=== PATIENT | male | born 1960 | race Caucasian/White ===

== ENCOUNTER 2019-08-12 21:04 | Observation (INO) ==
[2019-08-13] MEDS ORDERED: Naloxone 0.4 MG/ML INJ IVP PRN ×2 (04:16→16:41)
[2019-08-13] MEDS ORDERED: Dextrose Gel 15 GM/37.5 ML TUBE PO PRN ×4 (06:41→16:41)
[2019-08-13] MEDS ORDERED: *HR* Dextrose 50 % in Water (Syg) 50 ML SYRINGE IVP PRN ×2 (06:41→16:41)
[2019-08-13] MEDS ORDERED: D5% in Water 1,000 ML IVC PRN ×2 (06:41→16:41)
[2019-08-13 08:07] LABS: Hematocrit 36.4 % (37.5-50.1); Hemoglobin 12.6 g/dL (12.9-16.9); Mean Corpuscular HGB Conc 34.6 g/dL (31.6-35.5); Mean Corpuscular Hemoglobin 30.6 pg (28.0-33.3); Mean Corpuscular Volume 88.3 fL (83.0-100.0); Mean Platelet Volume 10.4 fL (9.4-12.4); Platelet Count 230 K/mcL (140-400); Red Blood Count 4.12 M/mcL (4.19-5.50); Red Cell Distribution Width 11.7 % (11.5-14.5)
[2019-08-13 08:26] LABS: BUN/Creatinine Ratio 13 (6-26); Blood Urea Nitrogen 12 mg/dL (6-20); Calcium 8.8 mg/dL (8.6-10.3); Carbon Dioxide 27 mEq/L (23-29); Chloride 100 mEq/L (98-107); Glucose 282 mg/dL (70-105); Osmolality,Calculated 294 (280-300); Potassium 3.1 mEq/L (3.5-5.1); Sodium 137 mEq/L (136-145); eGFR For African Americans > 60 (> 60); eGFR For Non-African Americans > 60 (> 60)
[2019-08-13] MEDS ORDERED: Metoprolol 100 MG TABLET PO SCH ×2 (09:00→21:00)
[2019-08-13] MEDS ORDERED: levoFLOXacin 750 MG/150 ML 750 MG/150 ML BAG IVPB SCH (09:00)
[2019-08-13 09:31] LABS: INR 1.2; Prothrombin Time 13.6 Seconds (9.4-12.1)
[2019-08-13] MEDS ORDERED: Ondansetron 4 MG/2 ML VIAL IVP ONE (09:34)
[2019-08-13] MEDS ORDERED: *HR* Promethazine 25 MG/ML VIAL IVP PRN (09:34)
[2019-08-13] MEDS ORDERED: *HR* OxyCODONE Immed Rel 5 MG TABLET PO PRN (09:34)
[2019-08-13] MEDS ORDERED: *HR* HYDROmorphone (PF) 1 MG/ML SYRINGE IVP PRN (09:34)
[2019-08-13 09:43] LABS: Albumin 3.5 g/dL (3.5-5.7); Albumin/Globulin Ratio 1.1 (1.1-2.2); Bilirubin,Direct 0.1 mg/dL (0.0-0.2); Bilirubin,Indirect 0.5 mg/dL (0.0-1.0); Bilirubin,Total 0.6 mg/dL (0.3-1.0); Globulin 3.3 g/dL (2.4-3.5); Magnesium 1.3 mg/dL (1.6-2.6); Phosphorous 3.9 mg/dL (2.7-4.5); Total Protein 6.8 g/dL (6.4-8.9)
[2019-08-13] MEDS ORDERED: *HR* FentaNYL (PF) 100 MCG/2 ML VIAL ONE (10:48)
[2019-08-13] MEDS ORDERED: Lidocaine -MPF 2% 2 ML VIAL ONE (10:48)
[2019-08-13] MEDS ORDERED: Dexamethasone 4 MG/ML VIAL ONE (10:48)
[2019-08-13] MEDS ORDERED: Ondansetron 4 MG/2 ML VIAL ONE (10:48)
[2019-08-13] MEDS ORDERED: *HR* Propofol 200 MG/20 ML VIAL IVP ONE (10:49)
[2019-08-13] MEDS ORDERED: Insulin LISPRO 300 UNITS/3 ML VIAL SQ SCH ×2 (12:00→18:00)
[2019-08-13] MEDS: 0.9 % Sodium Chloride 1,000 ML IVC SCH ×2 (12:26→17:20)
[2019-08-13] MEDS ORDERED: Isovue-300 50ML VIAL ONE (14:45)
[2019-08-13] MEDS ORDERED: EPHEDrine 50 MG/ML VIAL ONE (15:12)
[2019-08-13] MEDS ORDERED: 0.9 % Sodium Chloride 1,000 ML IVC SCH (16:41)
[2019-08-13 16:49] VITALS: BP 148/93
[2019-08-14] MEDS ORDERED: levoFLOXacin 750 MG/150 ML 750 MG/150 ML BAG IVPB SCH (09:00)
[2019-08-16 22:40] LABS: Calculi Mass 69 mg
== END 2019-08-13 19:33 | disposition home or self-care (01) ==
LOC: 3ANU
PROVIDERS: ADMIT Family Medicine; ATTEND Family Medicine

== ENCOUNTER 2021-03-19 21:03 | Inpatient (IN) ==
[2021-03-20] MEDS ORDERED: *HR* Labetalol 20 MG/4 ML SYRINGE IVP ONE (00:53)
[2021-03-20] MEDS ORDERED: *HR* HYDROcodone/Acet 10/325 mg TABLET PO ONE (00:55)
[2021-03-20] MEDS ORDERED: Naloxone 0.4 MG/ML INJ IVP PRN (01:09)
[2021-03-20] MEDS ORDERED: Ondansetron ODT 4 MG TAB.RAPDIS SL PRN (01:09)
[2021-03-20] MEDS ORDERED: Dextrose Gel 15 GM/37.5 ML TUBE PO PRN ×2 (02:57)
[2021-03-20] MEDS ORDERED: D5% in Water 1,000 ML IVC PRN (02:57)
[2021-03-20] MEDS ORDERED: *HR* Dextrose 50 % in Water (Vial) 50 ML VIAL IVP PRN (02:57)
[2021-03-20] MEDS: Insulin LISPRO 300 UNITS/3 ML VIAL SUBQ SCH ×3 (05:48→17:37)
[2021-03-20 09:39] LABS: Basophils % 0.6 %; Eosinophils # 0.1 K/mcL (0.0-0.6); Eosinophils % 1.3 %; Hematocrit 37.4 % (37.5-50.1); Hemoglobin 12.5 g/dL (12.9-16.9); Immature Granulocytes % 0.4 % (0-4); Lymphocytes # 0.9 K/mcL (0.6-4.6); Lymphocytes % 12.8 %; Mean Corpuscular HGB Conc 33.4 g/dL (31.6-35.5); Mean Corpuscular Hemoglobin 30.6 pg (28.0-33.3); Mean Corpuscular Volume 91.4 fL (83.0-100.0); Mean Platelet Volume 10.8 fL (9.4-12.4); Monocytes % 13.5 %; Nucleated Red Blood Cells 0.3 /100 WBC (0); Platelet Count 155 K/mcL (140-400); Red Blood Count 4.09 M/mcL (4.19-5.50); Red Cell Distribution Width 12.5 % (11.5-14.5); Segmented Neutrophils % 71.4 %; White Blood Count 7.1 K/mcL (4.3-11.1)
[2021-03-20 09:40] LABS: Basophils % 0.4 %; Eosinophils # 0.1 K/mcL (0.0-0.6); Eosinophils % 1.3 %; Hematocrit 37.2 % (37.5-50.1); Hemoglobin 12.6 g/dL (12.9-16.9); Immature Granulocytes % 0.4 % (0-4); Lymphocytes # 0.9 K/mcL (0.6-4.6); Lymphocytes % 12.4 %; Mean Corpuscular HGB Conc 33.9 g/dL (31.6-35.5); Mean Corpuscular Hemoglobin 30.7 pg (28.0-33.3); Mean Corpuscular Volume 90.7 fL (83.0-100.0); Mean Platelet Volume 11.1 fL (9.4-12.4); Monocytes % 13.2 %; Neutrophils # 5.2 K/mcL (1.6-8.9); Platelet Count 173 K/mcL (140-400); Red Cell Distribution Width 12.4 % (11.5-14.5); Segmented Neutrophils % 72.3 %; White Blood Count 7.2 K/mcL (4.3-11.1)
[2021-03-20] MEDS: Aspirin 325 MG TABLET PO SCH (09:51)
[2021-03-20] MEDS: Metoprolol 100 MG TABLET PO SCH ×2 (09:52→19:59)
[2021-03-20 09:59] LABS: Calcium 8.3 mg/dL (8.6-10.3); Magnesium 1.8 mg/dL (1.6-2.6); Phosphorous 8.5 mg/dL (2.7-4.5); Potassium 3.8 mEq/L (3.5-5.1)
[2021-03-20 10:00] LABS: Albumin 3.6 g/dL (3.5-5.7); Albumin/Globulin Ratio 1.3 (1.1-2.2); Bilirubin,Total 0.6 mg/dL (0.3-1.0); Calcium 8.4 mg/dL (8.6-10.3); Globulin 2.7 g/dL (2.4-3.5); Potassium 3.8 mEq/L (3.5-5.1); Total Protein 6.3 g/dL (6.4-8.9)
[2021-03-20] MEDS ORDERED: Ondansetron 4 MG/2 ML VIAL IVP PRN (11:04)
[2021-03-20] MEDS ORDERED: *HR* HYDROmorphone PF 0.5 MG/0.5 ML SYRINGE IVP PRN (11:04)
[2021-03-20] MEDS ORDERED: Lidocaine -MPF 2% 2 ML VIAL ONE (11:14)
[2021-03-20] MEDS ORDERED: *HR* FentaNYL (PF) 100 MCG/2 ML VIAL ONE (11:15)
[2021-03-20] MEDS ORDERED: *HR* Propofol 200 MG/20 ML VIAL IVP ONE (11:15)
[2021-03-20] MEDS ORDERED: *HR* Midazolam HCl 2 MG/2 ML VIAL ONE (11:15)
[2021-03-20] MEDS ORDERED: Lidocaine Jelly 6ml 1 APPL/6 ML JEL.PF.APP ONE ×2 (11:26→11:44)
[2021-03-20] MEDS ORDERED: Isovue-300 50ML VIAL ONE ×2 (11:26→11:44)
[2021-03-20] MEDS ORDERED: Gentamicin 80 MG/2 ML VIAL ONE (11:56)
[2021-03-20] MEDS ORDERED: *HR* Succinylcholine 200 MG/10 ML VIAL IVP ONE (11:59)
[2021-03-20] MEDS ORDERED: Gentamicin 160 MG in 0.9 % Sodium Chloride 100 ML IVPB ONE (12:15)
[2021-03-20] MEDS ORDERED: Ringers Solution, Lactated 1,000 ML ONE (13:12)
[2021-03-20] MEDS: 0.9 % Sodium Chloride 1,000 ML IVC SCH (15:49)
[2021-03-20] MEDS: *HR* Heparin 5,000 UNIT/ML VIAL SQ SCH (16:53)
[2021-03-20] MEDS ORDERED: Metoprolol 100 MG TABLET PO SCH (20:00)
[2021-03-20] MEDS ORDERED: NON-FORMULARY MEDICATION 1 EACH EACH (Atorvastatin Calcium [Lipitor] 80 MG Tablet) PO SCH (21:00)
[2021-03-21] MEDS: 0.9 % Sodium Chloride 1,000 ML IVC SCH ×3 (00:53→20:26)
[2021-03-21] MEDS: Insulin LISPRO 300 UNITS/3 ML VIAL SUBQ SCH ×4 (00:57→17:38)
[2021-03-21 04:09] LABS: Basophils % 0.2 %; Eosinophils # 0.1 K/mcL (0.0-0.6); Eosinophils % 0.8 %; Hematocrit 32.3 % (37.5-50.1); Hemoglobin 11.4 g/dL (12.9-16.9); Immature Granulocytes % 0.5 % (0-4); Lymphocytes # 0.8 K/mcL (0.6-4.6); Lymphocytes % 13.1 %; Mean Corpuscular HGB Conc 35.3 g/dL (31.6-35.5); Mean Corpuscular Hemoglobin 31.3 pg (28.0-33.3); Mean Corpuscular Volume 88.7 fL (83.0-100.0); Mean Platelet Volume 11.3 fL (9.4-12.4); Monocytes # 0.6 K/mcL (0.0-1.3); Monocytes % 9.5 %; Neutrophils # 4.9 K/mcL (1.6-8.9); Platelet Count 173 K/mcL (140-400); Red Blood Count 3.64 M/mcL (4.19-5.50); Red Cell Distribution Width 11.9 % (11.5-14.5); Segmented Neutrophils % 75.9 %; White Blood Count 6.4 K/mcL (4.3-11.1)
[2021-03-21 04:22] LABS: Calcium 7.9 mg/dL (8.6-10.3); Magnesium 1.3 mg/dL (1.6-2.6); Phosphorous 4.8 mg/dL (2.7-4.5); Potassium 3.6 mEq/L (3.5-5.1)
[2021-03-21] MEDS: *HR* Heparin 5,000 UNIT/ML VIAL SQ SCH (05:31)
[2021-03-21] MEDS: Aspirin 325 MG TABLET PO SCH (08:09)
[2021-03-21] MEDS: Metoprolol 100 MG TABLET PO SCH ×2 (08:09→20:27)
[2021-03-22] MEDS: Insulin LISPRO 300 UNITS/3 ML VIAL SUBQ SCH ×3 (02:05→12:17)
[2021-03-22] MEDS: 0.9 % Sodium Chloride 1,000 ML IVC SCH (05:15)
[2021-03-22 06:29] LABS: Calcium 8.4 mg/dL (8.6-10.3); Magnesium 1.2 mg/dL (1.6-2.6); Phosphorous 2.6 mg/dL (2.7-4.5)
[2021-03-22] MEDS ORDERED: Potassium Chloride 40 MEQ, Lidocaine 1% 2 ML in 0.9 % Sodium Chloride 500 ML IVPB ONE (07:47)
[2021-03-22] MEDS: Aspirin 325 MG TABLET PO SCH (08:42)
[2021-03-22] MEDS: Metoprolol 100 MG TABLET PO SCH (08:43)
[2021-03-22 11:42] VITALS: BP 152/87
== END 2021-03-22 16:05 | disposition home or self-care (01) | DRG 661 ==
LOC: 3BNU → SUATTDRO 23:03
PROVIDERS: ADMIT Student in an Organized Health Care Education/Training Program; ATTEND Family Medicine

== ENCOUNTER 2021-09-21 18:33 | Observation (INO) ==
[2021-09-21] MEDS ORDERED: Ketorolac 30 MG/ML VIAL IVP ONE (23:27)
[2021-09-21] MEDS ORDERED: 0.9 % Sodium Chloride 1,000 ML IV ONE (23:27)
[2021-09-22 00:28] LABS: Basophils # 0.1 K/mcL (0.0-0.2); Basophils % 0.7 %; Eosinophils # 0.3 K/mcL (0.0-0.6); Eosinophils % 3.4 %; Hematocrit 44.1 % (37.5-50.1); Hemoglobin 14.6 g/dL (12.9-16.9); Immature Granulocytes % 0.7 % (0-4); Lymphocytes # 1.7 K/mcL (0.6-4.6); Lymphocytes % 19.9 %; Mean Corpuscular HGB Conc 33.1 g/dL (31.6-35.5); Mean Corpuscular Hemoglobin 29.4 pg (28.0-33.3); Mean Corpuscular Volume 88.9 fL (83.0-100.0); Mean Platelet Volume 11.3 fL (9.4-12.4); Monocytes # 0.9 K/mcL (0.0-1.3); Monocytes % 10.5 %; Neutrophils # 5.6 K/mcL (1.6-8.9); Platelet Count 191 K/mcL (140-400); Red Blood Count 4.96 M/mcL (4.19-5.50); Segmented Neutrophils % 64.8 %; White Blood Count 8.7 K/mcL (4.3-11.1)
[2021-09-22 00:45] LABS: Albumin 4.3 g/dL (3.5-5.7); Albumin/Globulin Ratio 1.2 (1.1-2.2); Globulin 3.6 g/dL (2.4-3.5); Total Protein 7.9 g/dL (6.4-8.9)
[2021-09-22 01:06] LABS: Bilirubin,Urine Negative (Negative); Blood,Urine Small (Negative); Clarity,Urine Clear (Clear); Color,Urine Light-Yellow (Yellow); Glucose,Urine (UA) >=1000 mg/dL (Normal); Ketones,Urine Negative (Negative); Leukocyte Esterase,Urine Negative (Negative); Mucus,Urine Few per lpf (None-Few); Nitrite,Urine Negative (Negative); PH,Urine 5.5 pH Units (5.0-8.0); Protein,Urine 50 mg/dL (Neg-Trace); Specific Gravity,Urine 1.021 (1.010-1.025); Squamous Epithelial Cell,Urine Few per hpf (None-Few); Urobilinogen,Urine Normal (Normal)
[2021-09-22] MEDS ORDERED: Acetaminophen 325 MG TABLET PO PRN ×2 (02:39→14:33)
[2021-09-22] MEDS ORDERED: Melatonin 3 MG TABLET PO PRN ×2 (02:39→14:33)
[2021-09-22] MEDS ORDERED: Naloxone 0.4 MG/ML INJ IVP PRN ×3 (02:39→14:33)
[2021-09-22] MEDS ORDERED: Ondansetron 4 MG/2 ML VIAL IVP PRN ×3 (02:39→14:33)
[2021-09-22] MEDS ORDERED: *HR* HYDROcodone/Acet 5/325 mg TABLET PO PRN ×3 (02:39→14:33)
[2021-09-22] MEDS ORDERED: *HR* OxyCODONE Immed Rel 5 MG TABLET PO PRN ×3 (02:39→14:33)
[2021-09-22] MEDS ORDERED: *HR* Dextrose 50 % in Water (Syg) 50 ML SYRINGE IVP PRN ×2 (02:44→14:33)
[2021-09-22] MEDS ORDERED: Dextrose Gel 15 GM/37.5 ML TUBE PO PRN ×4 (02:44→14:33)
[2021-09-22] MEDS ORDERED: Saliva Stimulant 44.3ml BOTTLE PO PRN ×2 (02:44→14:33)
[2021-09-22] MEDS ORDERED: D5% in Water 1,000 ML IVC PRN ×2 (02:44→14:33)
[2021-09-22] MEDS: 0.9 % Sodium Chloride 1,000 ML IVC SCH ×2 (03:12→17:10)
[2021-09-22] MEDS: ceFAZolin 2,000 MG in 0.9 % Sodium Chloride 100 ML IVPB SCH ×3 (03:50→20:25)
[2021-09-22 08:34] LABS: Prothrombin Time 11.2 Seconds (9.4-12.1)
[2021-09-22 08:36] LABS: Activated Partial Thrombo Time 17.8 Seconds (26.0-36.0)
[2021-09-22] MEDS ORDERED: Metoprolol 100 MG TABLET PO SCH (09:00)
[2021-09-22] MEDS ORDERED: Lactobacillus 1 EACH CAP.SPRINK PO SCH (09:00)
[2021-09-22] MEDS ORDERED: Psyllium 1 PACKET POWD.PACK PO SCH (09:00)
[2021-09-22 09:19] LABS: Calcium 8.5 mg/dL (8.6-10.3); Magnesium 1.2 mg/dL (1.6-2.6); Phosphorous 3.4 mg/dL (2.7-4.5); Potassium 3.5 mEq/L (3.5-5.1)
[2021-09-22] MEDS: Insulin LISPRO 300 UNITS/3 ML VIAL SUBQ SCH ×4 (09:23→19:52)
[2021-09-22] MEDS ORDERED: *HR* Propofol 200 MG/20 ML VIAL IVP ONE ×2 (11:30→11:38)
[2021-09-22] MEDS ORDERED: *HR* FentaNYL (PF) 100 MCG/2 ML VIAL ONE (11:30)
[2021-09-22] MEDS ORDERED: Lidocaine -MPF 2% 5 ML VIAL ONE (11:31)
[2021-09-22] MEDS ORDERED: Isovue-300 50ML VIAL ONE (11:50)
[2021-09-22] MEDS ORDERED: *HR* Succinylcholine 200 MG/10 ML VIAL IVP ONE (12:21)
[2021-09-22] MEDS ORDERED: *HR* Rocuronium Bromide 50 MG/5 ML VIAL ONE (12:21)
[2021-09-22] MEDS ORDERED: ceFAZolin 1,000 MG in Water for inj. (sterile) 10 ML IVP ONE (12:29)
[2021-09-22] MEDS ORDERED: *HR* Metoprolol 5 MG/5 ML VIAL IVP PRN (12:45)
[2021-09-22] MEDS ORDERED: Nitroglycerin 0.4 MG TAB.SUBL SL PRN (12:45)
[2021-09-22] MEDS ORDERED: *HR* FentaNYL (PF) 100 MCG/2 ML VIAL IVP PRN (12:45)
[2021-09-22] MEDS ORDERED: Albuterol 2.5 MG/3 ML NEBULIZER IH PRN (12:45)
[2021-09-22] MEDS ORDERED: EPHEDrine 50 MG/ML VIAL ONE (12:53)
[2021-09-22] MEDS ORDERED: 0.9 % Sodium Chloride 1,000 ML IVC SCH (14:33)
[2021-09-22] MEDS: Psyllium 1 PACKET POWD.PACK PO SCH ×2 (17:11→21:03)
[2021-09-22 20:29] LABS: Basophils % 0.4 %; Hemoglobin 13.6 g/dL (12.9-16.9); Red Cell Distribution Width 12.8 % (11.5-14.5); Segmented Neutrophils % 82.9 %
[2021-09-22 20:31] LABS: Eosinophils % 0.3 %; Hematocrit 40.3 % (37.5-50.1); Immature Granulocytes % 1.7 % (0-4); Immature Platelets 9.2 % (1.1-6.1); Lymphocytes # 0.9 K/mcL (0.6-4.6); Lymphocytes % 12.3 %; Mean Corpuscular HGB Conc 33.7 g/dL (31.6-35.5); Mean Corpuscular Hemoglobin 29.9 pg (28.0-33.3); Mean Corpuscular Volume 88.6 fL (83.0-100.0); Mean Platelet Volume 12.7 fL (9.4-12.4); Monocytes # 0.2 K/mcL (0.0-1.3); Monocytes % 2.4 %; Neutrophils # 5.8 K/mcL (1.6-8.9); Red Blood Count 4.55 M/mcL (4.19-5.50)
[2021-09-22 21:03] LABS: Platelet Count 146 K/mcL (140-400)
[2021-09-22] MEDS: Lactobacillus 1 EACH CAP.SPRINK PO SCH (21:04)
[2021-09-22] MEDS: Metoprolol 100 MG TABLET PO SCH (21:05)
[2021-09-23 02:38] LABS: Estimated Average Glucose 217 mg/dl; Hemoglobin A1C 9.2 %
[2021-09-23] MEDS: ceFAZolin 2,000 MG in 0.9 % Sodium Chloride 100 ML IVPB SCH (03:17)
[2021-09-23 07:07] LABS: BUN/Creatinine Ratio 19 (6-26); Blood Urea Nitrogen 25 mg/dL (8-23); Calcium 8.2 mg/dL (8.6-10.3); Carbon Dioxide 25 mEq/L (23-29); Chloride 100 mEq/L (98-107); Glucose 278 mg/dL (70-105); Magnesium 1.3 mg/dL (1.6-2.6); Osmolality,Calculated 292 (280-300); Potassium 3.9 mEq/L (3.5-5.1); Sodium 134 mEq/L (136-145); eGFR For African Americans > 60 (> 60); eGFR For Non-African Americans 55 (> 60)
[2021-09-23] MEDS: Lactobacillus 1 EACH CAP.SPRINK PO SCH (07:55)
[2021-09-23] MEDS: Psyllium 1 PACKET POWD.PACK PO SCH (07:55)
[2021-09-23] MEDS: Metoprolol 100 MG TABLET PO SCH (07:55)
[2021-09-23] MEDS: Insulin LISPRO 300 UNITS/3 ML VIAL SUBQ SCH (07:55)
[2021-09-23 08:21] VITALS: BP 155/93; PULSE 62; TEMP 97.4; O2SAT 95
== END 2021-09-23 12:00 | disposition home or self-care (01) ==
LOC: EMEROOARM 18:33 → 3ANU 18:33 → SUATTDRO 09-22 02:14 → 3ANU 09-22 02:43
PROVIDERS: ADMIT Internal Medicine; ATTEND Internal Medicine

== ENCOUNTER 2022-03-02 14:31 | Observation (INO) ==
[2022-03-02] MEDS ORDERED: 0.9 % Sodium Chloride 1,000 ML IVC ONE (15:49)
[2022-03-02 16:32] LABS: Basophils % 0.4 %; Eosinophils % 0.2 %; Hematocrit 38.5 % (37.5-50.1); Hemoglobin 12.9 g/dL (12.9-16.9); Immature Granulocytes % 0.4 % (0-4); Lymphocytes # 0.4 K/mcL (0.6-4.6); Lymphocytes % 3.8 %; Mean Corpuscular HGB Conc 33.5 g/dL (31.6-35.5); Mean Corpuscular Hemoglobin 30.4 pg (28.0-33.3); Mean Corpuscular Volume 90.8 fL (83.0-100.0); Mean Platelet Volume 11.6 fL (9.4-12.4); Monocytes # 1.1 K/mcL (0.0-1.3); Monocytes % 9.4 %; Neutrophils # 9.8 K/mcL (1.6-8.9); Platelet Count 197 K/mcL (140-400); Red Blood Count 4.24 M/mcL (4.19-5.50); Red Cell Distribution Width 12.8 % (11.5-14.5); Segmented Neutrophils % 85.8 %; White Blood Count 11.4 K/mcL (4.3-11.1)
[2022-03-02 16:40] LABS: INR 1.2
[2022-03-02 16:42] LABS: Activated Partial Thrombo Time 25.4 Seconds (26.0-36.0)
[2022-03-02 17:22] LABS: Alanine Aminotransferase 19 Units/L (7-52); Albumin/Globulin Ratio 1.1 (1.1-2.2); Alkaline Phosphatase 57 Units/L (34-104); Aspartate Amino Transferase 18 Units/L (13-39); BUN/Creatinine Ratio 15 (6-26); Bilirubin,Direct 0.1 mg/dL (0.0-0.2); Bilirubin,Indirect 0.8 mg/dL (0.0-1.0); Bilirubin,Total 0.9 mg/dL (0.3-1.0); Blood Urea Nitrogen 36 mg/dL (8-23); Calcium 9.3 mg/dL (8.6-10.3); Carbon Dioxide 23 mEq/L (23-29); Chloride 96 mEq/L (98-107); Globulin 3.5 g/dL (2.4-3.5); Glucose 284 mg/dL (70-105); Magnesium 1.4 mg/dL (1.6-2.6); Osmolality,Calculated 295 (280-300); Phosphorous 2.8 mg/dL (2.7-4.5); Potassium 3.8 mEq/L (3.5-5.1); Sodium 133 mEq/L (136-145); Total Protein 7.5 g/dL (6.4-8.9); Troponin I < 0.03 ng/mL (< 0.04); eGFR For African Americans 34 (> 60); eGFR For Non-African Americans 28 (> 60)
[2022-03-02] MEDS ORDERED: Acetaminophen IV 1,000 MG/100 ML BAG IVPB ONE (21:01)
[2022-03-02] MEDS ORDERED: Acetaminophen 325 MG TABLET PO PRN (21:25)
[2022-03-02] MEDS ORDERED: Naloxone 0.4 MG/ML INJ IVP PRN (21:25)
[2022-03-02] MEDS ORDERED: Ondansetron 4 MG/2 ML VIAL IVP PRN (21:25)
[2022-03-02] MEDS ORDERED: Magnesium Sulfate 1 GM/102 ML PIGGYBACK IVPB ONE (21:31)
[2022-03-02] MEDS ORDERED: cefTRIAXone 2,000 MG in 0.9 % Sodium Chloride 20 ML IVP ONE (22:21)
[2022-03-02 22:38] LABS: Bilirubin,Urine Negative (Negative); Blood,Urine Small (Negative); Clarity,Urine Clear (Clear); Color,Urine Light-Yellow (Yellow); Glucose,Urine (UA) 200 mg/dL (Normal); Hyaline Casts,Urine Few per lpf (None Seen); Ketones,Urine Negative (Negative); Leukocyte Esterase,Urine Large (Negative); Mucus,Urine Few per lpf (None-Few); Nitrite,Urine Negative (Negative); Protein,Urine 100 mg/dL (Neg-Trace); RBC,Urine 0-3 per hpf (0-3); Specific Gravity,Urine 1.019 (1.010-1.025); Squamous Epithelial Cell,Urine Few per hpf (None-Few); Urobilinogen,Urine Normal (Normal); WBC,Urine 30-50 per hpf (0-3)
[2022-03-02] MEDS: 0.9 % Sodium Chloride 1,000 ML IVC SCH (23:22)
[2022-03-03] MEDS: Acetaminophen IV 1,000 MG/100 ML BAG IVPB SCH ×2 (03:42→18:03)
[2022-03-03 06:01] LABS: Hematocrit 33.5 % (37.5-50.1); Mean Corpuscular HGB Conc 33.4 g/dL (31.6-35.5); Mean Corpuscular Hemoglobin 30.3 pg (28.0-33.3); Mean Corpuscular Volume 90.5 fL (83.0-100.0); Mean Platelet Volume 10.8 fL (9.4-12.4); Platelet Count 199 K/mcL (140-400); Red Cell Distribution Width 12.8 % (11.5-14.5); White Blood Count 8.1 K/mcL (4.3-11.1)
[2022-03-03 06:02] LABS: Hemoglobin 11.2 g/dL (12.9-16.9)
[2022-03-03 06:24] LABS: Troponin I 0.05 ng/mL (< 0.04)
[2022-03-03 06:27] LABS: % Iron Saturation 7 % (20-55); Iron 18 mcg/dL (65-175); Transferrin 178 mg/dL (203-362)
[2022-03-03 06:35] LABS: Estimated Average Glucose 197 mg/dl; Hemoglobin A1C 8.5 %
[2022-03-03 06:41] LABS: Folate 9.2 ng/mL (3.0-16.0)
[2022-03-03 06:47] LABS: Calcium 8.4 mg/dL (8.6-10.3); Chol/HDL Ratio 5.1 (0-4.9); Potassium 2.9 mEq/L (3.5-5.1)
[2022-03-03 06:48] LABS: Ferritin 319 ng/mL (20-250)
[2022-03-03] MEDS ORDERED: *HR* Propofol 200 MG/20 ML VIAL IVP ONE ×2 (07:24)
[2022-03-03] MEDS ORDERED: *HR* Succinylcholine 200 MG/10 ML VIAL IVP ONE (07:24)
[2022-03-03] MEDS ORDERED: *HR* FentaNYL (PF) 100 MCG/2 ML VIAL ONE (07:24)
[2022-03-03] MEDS ORDERED: Lidocaine -MPF 2% 2 ML VIAL ONE (07:25)
[2022-03-03] MEDS ORDERED: Lidocaine HCL 4 ML Topical Solution (Laryng-O-Jet Kit Sterile Pak) TP ONE (07:25)
[2022-03-03] MEDS ORDERED: Lidocaine Jelly 11 ml Syringe ONE (08:27)
[2022-03-03] MEDS ORDERED: Iopamidol - 300 50 ML VIAL ONE (08:27)
[2022-03-03] MEDS ORDERED: hydroCHLOROthiazide 25 MG TABLET PO SCH (09:00)
[2022-03-03] MEDS ORDERED: Potassium Citrate 10 MEQ TABLET.ER PO SCH (09:00)
[2022-03-03] MEDS ORDERED: Aspirin 325 MG TABLET PO SCH (09:00)
[2022-03-03] MEDS ORDERED: Metoprolol 100 MG TABLET PO SCH (09:00)
[2022-03-03] MEDS ORDERED: Ondansetron 4 MG/2 ML VIAL ONE (09:53)
[2022-03-03] MEDS ORDERED: Hyoscyamine SL 0.125 MG TAB.SUBL SL PRN (11:05)
[2022-03-03] MEDS ORDERED: Naloxone 0.4 MG/ML INJ IVP PRN ×2 (11:05)
[2022-03-03] MEDS ORDERED: Ondansetron 4 MG/2 ML VIAL IVP PRN (11:05)
[2022-03-03] MEDS: 0.9 % Sodium Chloride 1,000 ML IVC SCH ×3 (11:38→20:40)
[2022-03-03] MEDS ORDERED: Acetaminophen 325 MG TABLET PO PRN (12:48)
[2022-03-03] MEDS ORDERED: *HR* HYDROcodone/Acet 5/325 mg TABLET PO PRN (12:51)
[2022-03-03] MEDS ORDERED: Dextrose Gel 15 GM/37.5 ML TUBE PO PRN ×2 (14:08)
[2022-03-03] MEDS ORDERED: D5% in Water 1,000 ML IVC PRN (14:08)
[2022-03-03] MEDS ORDERED: *HR* Dextrose 50 % in Water (Syg) 50 ML SYRINGE IVP PRN (14:08)
[2022-03-03] MEDS ORDERED: Acetaminophen IV 1,000 MG/100 ML BAG IVPB SCH (15:00)
[2022-03-03] MEDS: Insulin LISPRO 300 UNITS/3 ML VIAL SUBQ SCH (15:51)
[2022-03-03] MEDS ORDERED: Insulin LISPRO 300 UNITS/3 ML VIAL SUBQ SCH (21:00)
[2022-03-03] MEDS ORDERED: levoFLOXacin 750 MG/150 ML 750 MG/150 ML BAG IVPB SCH (21:00)
[2022-03-03] MEDS ORDERED: cefTRIAXone 2,000 MG in 0.9 % Sodium Chloride 20 ML IVP SCH (21:00)
[2022-03-04 03:49] VITALS: TEMP 98
[2022-03-04 06:31] LABS: Magnesium 1.8 mg/dL (1.6-2.6); Potassium 3.3 mEq/L (3.5-5.1)
[2022-03-04 07:03] VITALS: BP 125/80; PULSE 80; O2SAT 93
[2022-03-04] MEDS: 0.9 % Sodium Chloride 1,000 ML IVC SCH (07:46)
[2022-03-04] MEDS: Insulin LISPRO 300 UNITS/3 ML VIAL SUBQ SCH ×2 (07:53→11:55)
[2022-03-04] MEDS ORDERED: Potassium Chloride Elixir 20 MEQ/15 ML UDC PO ONE ×2 (08:48→11:00)
[2022-03-04] MEDS ORDERED: cefTRIAXone 1,000 MG in Water for inj. (sterile) 10 ML IVP SCH (09:00)
[2022-03-04] MEDS ORDERED: Aspirin 325 MG TABLET PO SCH (09:00)
[2022-03-04] MEDS ORDERED: levoFLOXacin 750 MG/150 ML 750 MG/150 ML BAG IVPB SCH (21:00)
== END 2022-03-04 14:34 | disposition home or self-care (01) ==
LOC: 2ANU 14:31 → EMEROOARM 14:31 → SUATTDRO 18:37 → 2ANU 19:50
PROVIDERS: ADMIT Internal Medicine; ATTEND Pharmacist